=== PATIENT | female | born 1965 | race Caucasian/White ===

== ENCOUNTER → 2022-08-02 | Outpatient (CLI) | payer BC ==
--- NOTE | 2022-08-02 12:25 | CT ---
EXAMINATION TYPE: CT right knee - [facility] Protocol DATE OF EXAM: 08/02/2022 COMPARISON: None HISTORY: Right NINO knee. CT DLP: 483.3 mGycm TECHNIQUE- CT of the right knee was performed. FINDINGS- Limited exam is performed for preprocedural planning with history of osteoarthritis. Grossly the stru ctures within the pelvis are within normal limits. Mild concentric narrowing of the hip joint noted. No erosive changes. No acute fracture. No dislocation. Right femur is intact and there is severe hypertrophic arthropathy involving the tricompartment space of the knee with the most marked findings involving the medial compartment. Cystic changes near the intercondylar notch likely post arthritic and related to a geode. No acute fr acture. No dislocation. IMPRESSION- 1. CT scan for preprocedural planning demonstrate severe osteoarthritis of the right knee.
== END | disposition home or self-care (01) ==
LOC: RADCTMAIN 11:03
PROVIDERS: ATTEND Orthopaedic Surgery
DX: M17.11 Unilateral primary osteoarthritis, right knee (principal); M25.561 Pain in right knee

== ENCOUNTER 2022-09-23 05:56 | Day surgery (SDC) | payer BC ==
[~2022-09-23 05:56] MED LIST: ROPIVACAINE/EPI/CLONIDINE/KET 50 ML SYRINGE MISCELLANE PRN; TRANEXAMIC ACID IN NACL,ISO-OS 1,000 MG in SALINE 1 100ML.BAG IVPB PRN
[2022-09-23] MEDS ORDERED: DOCUSATE 100 MG CAP PO PRN (06:00)
[2022-09-23] MEDS ORDERED: FAMOTIDINE 20 MG/2 ML VIAL IVP PRN (06:00)
[2022-09-23] MEDS ORDERED: ACETAMINOPHEN TAB 500 MG TAB PO PRN (06:00)
[2022-09-23] MEDS ORDERED: KETOROLAC 15 MG/ML 1 ML VIAL IVP PRN (06:00)
[2022-09-23] MEDS ORDERED: oxyCODONE ER 10 MG TAB.ER.12H PO PRN (06:00)
[2022-09-23] MEDS ORDERED: DEXAMETHASONE SOD PHOSPHATE 10 MG/ML 1 ML VIAL IV PRN (06:00)
[2022-09-23] MEDS ORDERED: MIDAZOLAM 2 MG/2 ML VIAL IV PRN (06:05)
[2022-09-23] MEDS: LACTATED RINGERS 1,000 ML IV SCH ×2 (06:30→12:23)
[2022-09-23] MEDS: ONDANSETRON 4 MG/2 ML VIAL IVP PRN ×2 (06:30→10:50)
[2022-09-23] MEDS ORDERED: fentaNYL (PF) 50 MCG/1 ML VIAL IV ONE (06:57)
[2022-09-23] MEDS ORDERED: HYDROmorphone 0.5 MG/0.5 ML SYRINGE IVP PRN (07:00)
[2022-09-23] MEDS ORDERED: SODIUM CHLORIDE 0.9% (PF) 10 ML VIAL ONE (07:25)
[2022-09-23] MEDS ORDERED: GLYCOPYRROLATE 0.2 MG/ML 2 ML VIAL ONE (07:25)
[2022-09-23] MEDS ORDERED: PROPOFOL 10 MG/ML 20 ML VIAL IV ONE (07:25)
[2022-09-23] MEDS ORDERED: LIDOCAINE 2% INJ 20 MG/ML (2 ML VIAL) ONE (07:25)
[2022-09-23] MEDS ORDERED: SUCCINYLCHOLINE CHLORIDE 200 MG/10 ML VIAL IV ONE (07:25)
[2022-09-23] MEDS ORDERED: ROCURONIUM 10 MG/ML (5 ML VIAL) IV ONE (07:25)
[2022-09-23] MEDS ORDERED: NEOSTIGMINE 1 MG/ML 10 ML VIAL ONE (07:25)
[2022-09-23] MEDS ORDERED: ROPIVACAINE 5 MG/ML 30 ML VIAL ONE (07:25)
[2022-09-23] MEDS ORDERED: MIDAZOLAM 2 MG/2 ML VIAL ONE (07:25)
[2022-09-23] MEDS ORDERED: fentaNYL (PF) 50 MCG/ML 2 ML AMP ONE (07:25)
[2022-09-23] MEDS ORDERED: PHENYLEPHRINE-0.9% NACL SYG 1,000 MCG/10 ML SYRINGE ONE (07:25)
--- NOTE | 2022-09-23 08:30 | P.ANPRN ---
Procedure Note - Anesthesia - Nerve Block Performed Right Adductor Canal Single Time Out Performed: Yes ([id number]) Date of Procedure: 09/23/22 Procedure Start Time: 06:58 Procedure Stop Time: 07:00 Location of Patient: PreOp Indication: Acute Post-Operative Pain, Requested by Surgeon Specifically requested for management of pain by DrSean: Papo Mathews Sedation Type: Sedate with meaningful contact maintained Preparation: Sterile Prep Position: Supine Catheter: None Needle Types: Pajunk Needle Gauge: 21 Ultrasound used to visualize needle placement: Yes Ultrasound used to observe medication spread: Yes Injectate: 0.5% Ropivacaine (see comment for volume) (15cc+ 5cc nacl pf) Blood Aspirated: No Pain Paresthesia on Injection Noted: No Resistance on Injection: Normal Image Stored and Saved: Yes Events: Uneventful and Well Tolerated
--- NOTE | 2022-09-23 08:31 | P.ANPRN ---
Procedure Note - Anesthesia - Nerve Block Performed Right iPack Single Time Out Performed: Yes ([id number]) Date of Procedure: 09/23/22 Procedure Start Time: : Procedure Stop Time: :02 Location of Patient: PreOp Indication: Acute Post-Operative Pain, Requested by Surgeon Specifically requested for management of pain by DrSean: Papo Mathews Sedation Type: Sedate with meaningful contact maintained Preparation: Sterile Prep Position: Supine Catheter: None Needle Types: Pajunk Needle Gauge: 21 Ultrasound used to visualize needle placement: Yes Ultrasound used to observe medication spread: Yes Injectate: 0.5% Ropivacaine (see comment for volume) (15cc+ 5cc nacl pf) Blood Aspirated: No Pain Paresthesia on Injection Noted: No Resistance on Injection: Normal Image Stored and Saved: Yes Events: Uneventful and Well Tolerated
[2022-09-23 10:40] VITALS: TEMP 97.7
--- NOTE | 2022-09-23 10:41 | P.OP ---
Date of Procedure: 09/23/22 Preoperative Diagnosis: Severe right knee osteoarthritis Postoperative Diagnosis: Same Procedure(s) Performed: Right total knee arthroplasty Implants: 1. [place] Triathlon CR Femur Size #4 2. [place] Triathlon [place] Tibial Base Size #3 3. [employer] Triathlon CS poly Size #10 mm 4. [employer] Triathlon all poly patella, Size #29 Anesthesia: LAURENA, regional Surgeon: Papo Mathews Canoe Maker #1: Noemi Avila Estimated Blood Loss (ml): 100 IV fluids (ml): 1,200 Pathology: none sent Condition: stable Disposition: PACU Indications for Procedure: I met with the patient preoperatively in the office setting and discussed treatment of their symptomatic knee arthritis. They failed a long course of nonsurgical treatment and elected to proceed with an elective total knee replacement. I discussed the potential risks and complications at length and gave them ample time to ask questions. Risks discussed included: risks from anesthesia, superficial site surgical infection, acute and/or chronic pe riprosthetic joint infection, delayed wound healing, drainage, wound necrosis, instability, stiffness, stiffness requiring manipulation and/or revision surgery, damage to local blood vessels or nerves, aseptic loosening of the implants, extensor mechanism issues including disruption, patellar maltracking, avascular necrosis etc., continued or worsened knee pain, generalized dissatisfaction with surgical outcome, need for revision surgery, an inability to regain preinjury level of function, DVT, PE, other medical complications, and possibly loss of life or limb. The patient voiced their understanding that while these are the most common complications other less common complications are possible. They provided both their verbal and written consent to go forward with surgery. Operative Findings: Severe and complete cartilage loss in the medial patellofemoral compartments, moderate arthritis in the lateral compartment with full-thickness defect down to subchondral bone lateral femoral condyle Description of Procedure: The patient was identified in preoperative holding and the correct operative extremity was verified and marked with a marker. I reviewed the consent form with the patient at length. All of their questions were answered. The patient was given a block by anesthesia. They were then brought back to the operating room. They were transferred onto the operating room table where a general anesthetic, preoperative antibiotics, and tranexamic acid were administered by anesthesia. A tourniquet was applied to the proximal aspect of the operative extremity. The contralateral extremity was padded under the heel and secured to the operating room table with a nonsterile blue towel and tape. The ipsilateral arm was carefully draped across the patient's chest and secured with a pillow and foam. A post was applied over the lateral aspect of the ipsilateral thigh and a bolster was placed under the ipsilateral foot. I verified that the operative extremity was stable and the knee was flexed to 90. The operative extremity was then placed in a leg bender, nonsterile drapes were applied, and the extremity was prepped and draped sterilely in the standard sterile fashion. Prior to starting surgery timeout was performed identifying the correct patient, operative extremity, and procedure. The leg was then elevated, exsanguinated with an Esmarch bandage, and the tourniquet was inflated. An anterior midline incision was made sharply with a scalpel. Once I had dissected deep to the superficial fascial layer medial and lateral flaps were elevated. A medial parapatellar arthrotomy was created. Upon opening the knee joint there were diffuse arthritic changes in all 3 compartments. The anterior horn of the medial meniscus were sharply released and a medial release was performed around the posterior medial corner of the knee to facilitate retractor placement. The fat pad was excised with electrocautery. The patella was found to be severely arthritic and a provisional cut was made with a sagittal saw to facilitate mobilization of the extensor mechanism during the procedure. Remnants of the ACL and PCL were then excised from the notch. 4 mm pins were then placed within the incision in the medial distal femur and proximal tibia. Arrays were applied to the pins and I verified they were completely tightened. The knee was then registered with the [employer] robot and manipulations in implant position were made to balance the knee and opitmize implant position. Using the Jon robotic saw all cuts were made in accordance with our plan. After all bony fragments had been removed the cuts were verified with the planar probe. The tibia was then subluxed forward and sized. The knee was brought into flexion and a lamina grinding wheel operator was placed to allow removal of the meniscal remnants both medially and laterally as well as posterior osteophytes. Local anesthetic was then infiltrated around the joint capsule. Trial implants were then placed within the knee. Range of motion and collateral ligament tension was then evaluated. Adjustments in implant size and position were then made accordingly. Once the knee was felt to be appropriately balanced the Jon pins were removed. The patella was then recut, sized, and punched. A trial patellar button was then placed. With the trial components in place, the patella tracked midline. The femur was then drilled and the trial component removed. The trial tibial component was then appropriately rotated, pinned, and prepared for the keel. Al l trial components were then removed from the knee. The knee was thoroughly irrigated with pulsatile lavage. Cement was prepared via vacuum mixing in a bowl on the back table. I then hand pressurized cement into the femur and tibia and placed the implants beginning with the tibial base tray and poly liner, femoral component, and finally the patellar button. All extruded cement was removed including from the pin sites. Once the cement had hardened the knee was evaluated one final time with the final polyethylene liner in place. The knee had full extension and flexion and felt stable to varus and valgus stress throughout the arc of motion. The tourniquet was released and with the tourniquet down the patella tracked midline. All bleeders were controlled with electrocautery. The knee was then soaked for 3 minutes with a dilute Betadine soak. The knee was thoroughly irrigated using 3 L of sterile saline and pulsatile lavage. The extensor mechanism was then reapproximated using pop off Vicryl sutures followed by a running barbed suture. The knee was then closed in layers with a 0 strata fix for the deep fascial layer, 2-0 strata fix for the superficial subcutaneous layer and Monocryl and Steri-Strips for the skin. A sterile dressing was applied. I verified that all instrument, sponge, and sharp counts were correct. The patient was then transferred off the operating room table, extubated, and brought to recovery having tolerated the procedure well. Noemi Avila PA-C was required as a skilled assistant case manager due to the complexity of the procedure for patient positioning, draping, retraction, placement of hardware, and closure of wound. PLAN: The patient can weight-bear as tolerated on the operative extremity. DVT prophylaxis with aspirin 81 mg twice a day based on preoperative risk stratification. The patient is going to attempt to leave as an outpatient. They can be discharged as long as they passed physical therapy and her pain is controlled. Follow-up in the office in 2 weeks for wound check and x-rays of the knee including an AP and lateral.
[2022-09-23 11:02] VITALS: RESP 16
--- NOTE | 2022-09-23 11:09 | XR ---
EXAMINATION TYPE: XR knee limited RT DATE OF EXAM: 09/23/2022 11:01 AM INDICATION: Patient age:Female; 56 years old; Reason for study: post op; [facility]. COMPARISON: CT right knee 07/31/2022 TECHNIQUE: The Right knee(s) was examined in frontal and lateral projections. FINDINGS: Post surgical changes from knee arthroplasty with distal femoral and proximal tibial comp onents. Hardware appears intact with appropriate alignment. There is associated soft tissue gas and e evon. No acute fracture or dislocation. IMPRESSION: Postsurgical changes from knee arthroplasty. Hardware appears intact with appropriate alignment.
[2022-09-23] MEDS ORDERED: HYDROcodone/APAP 5-325MG 1 EACH TAB PO ONE (11:58)
[2022-09-23] MEDS ORDERED: HYDROcodone/APAP 5-325MG 1 EACH TAB ONE (12:00)
[2022-09-23 12:26] VITALS: BP 111/73; PULSE 67
== END 2022-09-23 13:41 | disposition home health service (06) ==
LOC: OR 05:56
PROVIDERS: ATTEND Orthopaedic Surgery
DX: M17.11 Unilateral primary osteoarthritis, right knee (principal); G89.18 Other acute postprocedural pain; Z98.890 Other specified postprocedural states; Z83.3 Family history of diabetes mellitus; Z82.49 Family history of ischemic heart disease and other diseases of the circulatory system
CPT/HCPCS: 27447; 97530; 97161; 64447; 64999; 76942; 73560; C1776; J2250; J0330; J1100; J2710; J0690; J2405; J3010 ×2; J2795; J1885; J2370; J2704; J1790; J2001; 88300

== ENCOUNTER → 2023-07-06 | Outpatient (CLI) | payer BC | END | disposition home or self-care (01) | LOC: LABWHC1 15:59 → EDSTATUS 16:01 | PROVIDERS: ATTEND Orthopaedic Surgery | DX: M25.561 Pain in right knee (principal); Z47.1 Aftercare following joint replacement surgery; Z96.651 Presence of right artificial knee joint | CPT/HCPCS: 36415; 85379; 85652; 86140 ==

== ENCOUNTER 2024-01-12 07:30 | Inpatient (IN) | payer BC ==
[2024-01-09 15:32] VITALS: BMI 24.2
[~2024-01-12 07:30] MED LIST changes: +DEXAMETHASONE SOD PHOSPHATE 4 MG/ML 1 ML VIAL IV ONE; +HYDROmorphone 0.5 MG/0.5 ML SYRINGE IVP PRN; +LIDOCAINE 1% (10MG/ML) FOR IV START INTRADERMA PRN; +MIDAZOLAM 2 MG/2 ML VIAL IV PRN; +ONDANSETRON 4 MG/2 ML VIAL IVP PRN; -ROPIVACAINE/EPI/CLONIDINE/KET 50 ML SYRINGE MISCELLANE PRN; +TRANEXAMIC 1,000 MG/100ML-NACL 1,000 MG in SALINE 1 100ML.BAG IV PRN; +TRANEXAMIC 1,000 MG/100ML-NACL 1,000 MG in SALINE 1 100ML.BAG IVPB PRN; -TRANEXAMIC ACID IN NACL,ISO-OS 1,000 MG in SALINE 1 100ML.BAG IVPB PRN
[2024-01-12] MEDS: LACTATED RINGERS 1,000 ML IV SCH (09:12)
[2024-01-12] MEDS: DEXAMETHASONE SOD PHOSPHATE 10 MG/ML 1 ML VIAL IV PRN (09:17)
[2024-01-12] MEDS: FAMOTIDINE 20 MG/2 ML VIAL IVP PRN (09:17)
[2024-01-12] MEDS: DOCUSATE 100 MG CAP PO PRN (09:17)
[2024-01-12] MEDS: ACETAMINOPHEN TAB 500 MG TAB PO PRN (09:17)
[2024-01-12] MEDS: KETOROLAC 15 MG/ML 1 ML VIAL IVP PRN (09:18)
[2024-01-12] MEDS: ONDANSETRON 4 MG/2 ML VIAL IVP ONE (09:18)
[2024-01-12] MEDS: oxyCODONE ER 10 MG TAB.ER.12H PO PRN (09:18)
[2024-01-12 09:27] LABS: HCT 44.9 % (34.0-46.0); HGB 14.7 gm/dL (11.4-16.0); MCHC 32.7 g/dL (31.0-37.0); MCV 94.9 fL (80.0-100.0); Mean Platelet Volume 7.5; Platelet Count 275 k/uL (150-450); RBC 4.73 m/uL (3.80-5.40); RDW 12.1 % (11.5-15.5)
[2024-01-12 09:41] VITALS: RESP 16
[2024-01-12] MEDS ORDERED: HYDROmorphone (PF) 1 MG/ML ONE (10:15)
[2024-01-12] MEDS ORDERED: ROCURONIUM 10 MG/ML (5 ML VIAL) IV ONE (10:15)
[2024-01-12] MEDS ORDERED: GLYCOPYRROLATE 0.2 MG/ML 2 ML VIAL ONE (10:15)
[2024-01-12] MEDS ORDERED: TRANEXAMIC 1,000 MG/100ML-NACL PREMIX BAG ONE (10:15)
[2024-01-12] MEDS ORDERED: fentaNYL (PF) 50 MCG/ML 2 ML AMP ONE (10:15)
[2024-01-12] MEDS ORDERED: MIDAZOLAM 2 MG/2 ML VIAL ONE (10:15)
[2024-01-12] MEDS ORDERED: SUCCINYLCHOLINE CHLORIDE 200 MG/10 ML VIAL IV ONE (10:15)
[2024-01-12] MEDS: ROPIVACAINE/EPI/CLONIDINE/KET 50 ML SYRINGE MISCELLANE PRN (10:15)
[2024-01-12] MEDS ORDERED: LIDOCAINE 1% INJ 10MG/ML (20 ML MDV) ONE (10:15)
[2024-01-12] MEDS ORDERED: NEOSTIGMINE 1 MG/ML 10 ML VIAL ONE (10:15)
[2024-01-12] MEDS ORDERED: PROPOFOL 10 MG/ML 20 ML VIAL IV ONE (10:15)
--- NOTE | 2024-01-12 12:05 | P.OP ---
Date of Procedure: 01/12/24 Preoperative Diagnosis: 1. global instability right total knee replacement 2. Recurrent effusions, right total knee replacement Postoperative Diagnosis: same Procedure(s) Performed: right total knee revision, polyethylene liner exchange Implants: [place] triathlon CS polyethylene, 12 mm Anesthesia: LAURENA, regional Surgeon: Papo Mathews Head Of Measurement & Insights #1: Fabian Mtz Estimated Blood Loss (ml): 50 IV fluids (ml): 800 Pathology: other (multiple deep cultures and fluid for cell count with differential) Condition: stable Disposition: PACU Indications for Procedure: the patient is a very pleasant 58-year-old female who underwent a right total knee replacement or severe arthritis in September 2022. She initially did well without complication. Her incision was well-healed with no sign of infection. She developed progressively worsening pain and feelings of instability both in her knee and lower leg. She was worked up for infection and had normal inflammatory markers and cell count with differential the one culture was positive. The fluid did not appear purulent. Repeat aspiration was negative for infection. She was worked up by neurology for nerve related pain attributable to the tourniquet and a foot and ankle surgeon for ankle instability. She also has had evaluation by a back specialist for radiculopathy. In regards to her right knee her x-rays showed well fixed implant with no sign of any loosening. Her workup for infection was negative. Clinically she had subtle instability globally in extension, mid flexion, and flexion. Due to her ongoing pain and slight improvement with a brace my recommendation was to perform a revision surgery to assess fixation of the implants and if they were well fixed to go up in the polyliner to address her instability. We discussed the potential risks and complications of this at length including continued or worsened pain. She is well aware of all the potential complications including deep infection, loosening, instability, stif fness, DVT, PE, other medical complications, a generalized dissatisfaction with her surgical outcome, and possibly loss of life or limb. She also knowledge is that other less common complications are possible. She provided both her verbal and written consent to go forward with surgery. Operative Findings: there is a small clear yellow effusion in the knee with no signs of purulence. Both fluid and soft tissue were taken for culture. All implants appeared well fixed with no sign of loosening. With the initial 10 mm polyethylene her knee felt globally unstable and felt much more stable with a 12 mm polyethylene liner. Description of Procedure: the patient was identified in preoperative holding and the correct right leg was marked with my initials. I reviewed the consent form with the patient and her friend. All their questions were answered. The patient was then brought back to the operating room. She was given preoperative antibiotics and tranexamic acid. She was positioned on the OR table. A tourniquet was applied to the proximal aspect of the right leg. The leg was positioned for surgery and a presurgical scrub with a chlorhexidine scrub brush and water was performed. The right leg was then prepped and draped in the standard sterile fashion. Prior to starting surgery timeout was performed identifying the correct patient, operative extremity, and procedure. The patient's leg was then elevated, exsanguinated with an Esmarch bandage, and the tourniquet was inflated to 250 mmHg. I began by outlining the prior scar over the anterior aspect of the knee. Skin incision was made along the prior scar and extended 1 cm proximally to identify normal subfascial planes. The soft tissue cuff was elevated medially s ubfascially. An 18-gauge needle was then used to aspirate the knee prior to making arthrotomy. A 5 mL's of clear yellow fluid was aspirated. This was sent off for cell count differential and cultures. A medial parapatellar arthrotomy was then performed. A limited medial release was performed. On inspection of the joint there was normal-appearing fibrous tissue and no signs of purulence or infection. The synovium did not appear grossly inflamed or abnormal. Tissue was debrided from the medial and lateral gutter and sent for cultures. Soft tissue behind the patella and patellar tendon was also debrided. The polyethylene liner was then carefully removed and sent off to the back table. On inspection of the joint all implants appeared well fixed with no sign of loosening. The wound was then thoroughly irrigated. I initially trialed with both an 11 and a 12 mm partially liner and the 12 mm poly-felt stable. A final 12 mm poly-was dispensed and carefully inserted to engage the locking mechanism. The knee was again brought through range of motion and felt stable. The knee was soaked for 3 minutes with a dilute Betadine rinse. It was irrigated with both Irrisept and 3 L of sterile saline using pulsatile lavage. Local anesthetic was infiltrated around the wound. The knee was then closed in layers. A sterile dressing was applied. The tourniquet was up for a total of 2 2 minutes. The patient was then awoken from her anesthetic, transferred from the OR table to a gurney, and brought to recovery having tolerated the procedure well. Fabian Mtz PA-C was required as a skilled assistant plant control operator for patient positioning, exposure, retraction, draping, closure of wound, and application of dressing. Plan: The patient is going to attempt to discharge home as an outpatient. She can weight-bear as tolerated. She will leave her dressing on. She'll be treated with aspirin for DVT prophylaxis and was given pain medication. She will need follow-up in the office in 2 weeks for soft tissue check. She does not need x-rays at that time.
[2024-01-12 12:33] VITALS: TEMP 97
[2024-01-12 14:01] VITALS: BP 118/69; PULSE 71
[2024-01-12 15:33] LABS: Appearance,BF CLR; Nucleated Cells, Body Fluid 10 /uL; RBC, Body Fluid 2060 /uL
== END 2024-01-12 14:31 | disposition home or self-care (01) | DRG 489 ==
LOC: EDSTATUS 07:30 → 2ORMAIN 08:33
PROVIDERS: ADMIT Orthopaedic Surgery; ATTEND Orthopaedic Surgery
PROC: 0SUV09Z Supplement Right Knee Joint, Tibial Surface with Liner, Open Approach (ICD-10-PCS; 2024-01-12)
PROC: 0SPC09Z Removal of Liner from Right Knee Joint, Open Approach (ICD-10-PCS; principal; 2024-01-12 10:25)
DX: T84.022A Instability of internal right knee prosthesis, initial encounter (principal); M25.371 Other instability, right ankle; Y79.2 Prosthetic and other implants, materials and accessory orthopedic devices associated with adverse incidents; Z91.048 Other nonmedicinal substance allergy status; Z87.19 Personal history of other diseases of the digestive system
CPT/HCPCS: 85027; 87070; 87075; 87205; 89050

== ENCOUNTER → 2025-03-24 | Outpatient (CLI) | payer BC ==
--- NOTE | 2025-03-24 09:16 | CT ---
EXAMINATION TYPE: CT chest abdomen wo con DATE OF EXAM: 03/24/2025 8:44 AM COMPARISON: None. CLINICAL INDICATION: Female, 59 years old with history of R91.1 SOLIT PULM NODULE, K76.89; PHH, lung nodules and liver lesion. oral only. Technique: CT chest abdomen wo con; Multiple axial images were obtained. Two-dimensional coronal and sagittal reconstructions were obtained. Contrast used: mL of , (None if empty) Oral contrast used: with Oral Contrast CT DLP: 524 mGycm, Automated exposure control for dose reduction was used. Findings: CHEST: LUNGS/ PLEURA: No focal consolidation, pneumothorax or pleural effusion. 3 mm left lingula/upper lobe nodule series 4 image 43 AIRWAY: Patent and unremarkable. HEART: Size within normal limits. Mild coronary artery calcifications present. MEDIASTINUM: No gross evidence of adenopathy. VASCULATURE: No aortic aneurysm. 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 MUSCULOSKELETAL: No acute osseous abnormalities. SOFT TISSUES/LYMPH NODES: Unremarkable. LOWER NECK: No significant findings. ABDOMEN: ABDOMEN LIVER: Right hepatic lobe multiloculated cystic lesion measuring 48 x 33 mm. Scattered simple appeari ng hepatic cysts are also present. GALLBLADDER AND BILE DUCTS: Unremarkable. PANCREAS: Unremarkable. SPLEEN: Unremarkable. ADRENAL GLANDS: Unremarkable. KIDNEYS AND URETERS: No evidence of hydronephrosis or obstructing renal calculus. The ureters are unr emarkable. STOMACH AND BOWEL: No evidence of bowel obstruction. PERITONEUM/RETROPERITONEUM: No evidence of pneumoperitoneum or free fluid. VASCULATURE: No evidence of aortic aneurysm. MUSCULOSKELETAL: No acute osseous abnormalities, scoliosis changes of the spine dextroscoliosis apex L4. LYMPH NODES: No gross evidence for lymphadenopathy. SOFT TISSUE/ABDOMINAL WALL: Unremarkable IMPRESSION: 1. No evidence for acute process. 2. No clinically significant pulmonary nodules. No prior available for comparison. 3. Multi loculated cystic lesion in the right hepatic lobe as well as other scattered hypodense lesi ons. Liver mass protocol MRI with IV contrast recommended for further characterization [facility] Leonides Medina, , 03/24/2025 9:14 AM
== END | disposition home or self-care (01) ==
LOC: RADCTMAIN 07:32
PROVIDERS: ATTEND Family Medicine
DX: K76.89 Other specified diseases of liver (principal); R91.1 Solitary pulmonary nodule; Q44.6 Cystic disease of liver
CPT/HCPCS: 71250; 74150